=== PATIENT | female | born 1970 | race Caucasian/White ===

== ENCOUNTER → 2016-06-08 | Outpatient (CLI) | payer OTHER ==
--- NOTE | 2016-06-08 17:08 | MR ---
MRI Thoracic spine without contrast History: M54.6, back pain, chest pain, previous surgery. Comparison: None available. Technique: Sagittal T1/T2/STIR and axial T1/T2-weighted MR series of the thoracic spine without contr ast. Findings: Bilateral transpedicular screws and fusion rods at T7 and T8 level. No acute compression fractures or destructive osseous lesions. Thoracic spinal cord demonstrates norm al signal intensity without cord edema or myelomalacia. No evidence of thoracic disk herniations, spinal canal stenosis or neural foraminal stenosis. Mild degenerative disk disease with mild disk desiccation and small ventral osteophytes and Schmorl's nodes from T6-T7 through T11-T12. No paraspinal or epidural hematomas. A few probable hepatic cysts noted. Impression: 1. Posterior transpedicular screws and fusion hardware at the T7-T8 level without evidence of acute d isk herniation or stenosis. 2. Multilevel mild degenerative disk disease mid to lower thoracic spine. 3. No thoracic compression fractures, disk herniations, spinal canal stenosis, neural foraminal steno sis, or cord compression. 4. Normal thoracic spinal cord signal without cord edema, myelomalacia or cord compression. 5. Partial visualization of a few probable hepatic cysts.
== END ==
LOC: FIMAGING 15:24
PROVIDERS: ATTEND Physician Assistant
DX: M51.34 Other intervertebral disc degeneration, thoracic region (principal)

== ENCOUNTER → 2016-06-30 | Outpatient (CLI) | payer OTHER | LOC: FIMAGING 16:00 | PROVIDERS: ATTEND Physician Assistant | DX: Z13.828 Encounter for screening for other musculoskeletal disorder (principal); Z98.1 Arthrodesis status ==

== ENCOUNTER → 2016-07-21 | Outpatient (CLI) | payer OTHER | LOC: FIMAGING 08:23 | PROVIDERS: ATTEND Internal Medicine Endocrinology, Diabetes & Metabolism | PROC: CW1NGZZ Planar Nuclear Medicine Imaging of Whole Body using Iodine 131 (I-131) (ICD-10-PCS; principal; 2016-07-21) | DX: Z85.850 Personal history of malignant neoplasm of thyroid (principal) | CPT/HCPCS: 78018; A9528 ==

== ENCOUNTER → 2017-02-02 | Outpatient (CLI) | payer OTHER | LOC: FIMAGING 11:37 | PROVIDERS: ATTEND Internal Medicine Endocrinology, Diabetes & Metabolism | DX: Z08 Encounter for follow-up examination after completed treatment for malignant neoplasm (principal); E89.0 Postprocedural hypothyroidism; Z85.850 Personal history of malignant neoplasm of thyroid ==

== ENCOUNTER → 2017-03-18 | Outpatient (CLI) | payer OTHER | LOC: FIMAGING 09:05 | PROVIDERS: ATTEND Internal Medicine Endocrinology, Diabetes & Metabolism | PROC: CG4 Nuclear Medicine, Endocrine System, Nonimaging Nuclear Medicine Uptake (ICD-10-PCS; principal; 2017-03-18) | DX: C73 Malignant neoplasm of thyroid gland (principal) | CPT/HCPCS: 78018; 79005; A9517 ==

== ENCOUNTER → 2017-05-24 | Outpatient (CLI) | payer OTHER | LOC: FIMAGING 12:05 | PROVIDERS: ATTEND Physician Assistant | DX: M54.5 Low back pain (principal); Z98.1 Arthrodesis status ==

== ENCOUNTER → 2017-07-28 | Outpatient (CLI) | payer OTHER | LOC: FIMAGING 11:22 | DX: M25.551 Pain in right hip (principal) ==

== ENCOUNTER → 2017-09-09 | Outpatient (CLI) | payer OTHER | LOC: FIMAGING 11:12 | PROVIDERS: ATTEND Internal Medicine Endocrinology, Diabetes & Metabolism | DX: Z09 Encounter for follow-up examination after completed treatment for conditions other than malignant neoplasm (principal); E89.0 Postprocedural hypothyroidism ==

== ENCOUNTER → 2018-03-06 | Outpatient (CLI) | payer OTHER ==
[~2018-03-06] MED LIST: IOPAMIDOL (ISOVUE-300) 100 ML BTL ONE
== END ==
LOC: FIMAGING 11:52
PROVIDERS: ATTEND Internal Medicine Endocrinology, Diabetes & Metabolism
DX: C73 Malignant neoplasm of thyroid gland (principal); K76.89 Other specified diseases of liver
CPT/HCPCS: Q9967

== ENCOUNTER → 2018-05-23 | Outpatient (CLI) | payer OTHER ==
[~2018-05-23] MED LIST changes: +GADOBUTROL 10 ML VIAL IVP ONE; +GLUCAGON HCL 0.3 MG in SYRINGE 0.3 ML IVP ONE; -IOPAMIDOL (ISOVUE-300) 100 ML BTL ONE
== END ==
LOC: FIMAGING 10:01
PROVIDERS: ATTEND Physician Assistant
DX: K92.1 Melena (principal)
CPT/HCPCS: A9585; J1610

== ENCOUNTER → 2018-06-20 | Outpatient (CLI) | payer OTHER | LOC: FIMAGING 15:59 | PROVIDERS: ATTEND Internal Medicine Endocrinology, Diabetes & Metabolism | DX: Z08 Encounter for follow-up examination after completed treatment for malignant neoplasm (principal); R59.0 Localized enlarged lymph nodes; Z90.89 Acquired absence of other organs ==